=== PATIENT | male | born 1985 | race Two or more races ===

== ENCOUNTER 2017-10-28 07:21 | Emergency (ER) | payer OTHER, BC ==
[~2017-10-28] VITALS: Ht 165.1 cm; Wt 75.7 kg
[2017-10-28 07:30] VITALS: BP 128/80
[2017-10-28] MEDS ORDERED: IBUP800T19 PO (07:38)
[2017-10-28] MEDS ORDERED: lidoderm 5% patch TOP (07:38)
[2017-10-28] MEDS ORDERED: CYCL5TAB PO (07:38)
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
== END 2017-10-28 07:45 | disposition home or self-care (01) ==
LOC: ER 07:21
DX: S29.012A Strain of muscle and tendon of back wall of thorax, initial encounter (principal); V49.9XXA Car occupant (driver) (passenger) injured in unspecified traffic accident, initial encounter; Y93.89 Activity, other specified; Y99.8 Other external cause status; Y92.89 Other specified places as the place of occurrence of the external cause
CPT/HCPCS: 99283

== ENCOUNTER → 2017-11-17 | Outpatient (CLI) | payer OTHER, BC ==
[2017-10-28 07:30] VITALS: BP 128/80
[~2017-11-17] MED LIST: CYCL5TAB PO; IBUP800T19 PO; lidoderm 5% patch TOP
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
== END | disposition home or self-care (01) ==
LOC: PMG 11:30
PROVIDERS: ATTEND General Practice
DX: M50.322 Other cervical disc degeneration at C5-C6 level (principal); M53.82 Other specified dorsopathies, cervical region; M62.838 Other muscle spasm; M48.02 Spinal stenosis, cervical region; V29.88XD Motorcycle rider (driver) (passenger) injured in other specified transport accidents, subsequent encounter; Z98.890 Other specified postprocedural states
CPT/HCPCS: 72040